=== PATIENT | female | born 1975 | race Caucasian/White ===

== ENCOUNTER 2018-04-18 08:06 | Emergency (ER) | payer BC, OTHER ==
[~2018-04-18] VITALS: Ht 172.7 cm; Wt 82.0 kg
[2018-04-18] MEDS ORDERED: SODIUM CHLORIDE 0.9% 1,000ML IVBOLUS ONE (09:00)
[2018-04-18 09:10] LABS: BASOPHILS # (AUTO) 0.03 x10^3/uL (0-0.1); BASOPHILS % (AUTO) 0 % (0-1); EOSINOPHILS # (AUTO) 0.05 x10^3/uL (0-0.4); EOSINOPHILS % (AUTO) 0 % (1-7); LYMPHOCYTES # (AUTO) 1.57 x10^3/uL (1-3.4); LYMPHOCYTES % (AUTO) 13 % (22-44); MD NO; MEAN CORPUSCULAR HEMOGLOBIN 29.1 pg (27.0-34.8); MEAN CORPUSCULAR HGB CONC 33.6 g/dL (32.4-35.8); MEAN CORPUSCULAR VOLUME 86.7 fL (80-100); MEAN PLATELET VOLUME 7.5 fL (7.4-10.4); MONOCYTES # (AUTO) 0.69 x10^3/uL (0.2-0.8); MONOCYTES % (AUTO) 6 % (2-9); NEUTROPHILS # (AUTO) 10.19 x10^3/uL (1.8-6.8); NEUTROPHILS % (AUTO) 81 % (42-75); PLATELET COUNT 359 x10^3/uL (130-400); RED BLOOD COUNT 4.74 x10^6/uL (3.82-5.3); RED CELL DISTRIBUTION WIDTH 12.2 % (9.6-15.2)
[2018-04-18 09:17] LABS: MICROSCOPIC AUTO
[2018-04-18 09:19] LABS: CULTURE INDICATED? YES
[2018-04-18 09:21] LABS: ALBUMIN 3.4 g/dL (3.4-5.0); ANION GAP 5 mmol/L (5-15); CALCIUM 8.9 mg/dL (8.5-10.1); CHLORIDE 105 mmol/L (98-107)
[2018-04-18 09:25] LABS: CREATININE 0.69 mg/dL (0.55-1.02)
[2018-04-18 09:26] LABS: ALANINE AMINOTRANSFERASE 40 U/L (12-78); ALKALINE PHOSPHATASE 87 U/L (45-117); BILIRUBIN,TOTAL 0.3 mg/dL (0.2-1.0); TOTAL PROTEIN 7.8 g/dL (6.4-8.2)
[2018-04-18] MEDS ORDERED: MAALOX/HYOSCYAMINE/LIDOCAINE 45 ML BTL PO ONE (09:30)
[2018-04-18] MEDS ORDERED: MAALOX/HYOSCYAMINE/LIDOCAINE 45 ML BTL ONE (09:31)
[2018-04-18] MEDS ORDERED: MORPHINE SULFATE 4 MG/ML, 1ML IVPush PRN (10:00)
[2018-04-18] MEDS ORDERED: ONDANSETRON 2MG/ML, 2ML IVPush ONE (10:00)
[2018-04-18] MEDS ORDERED: MORPHINE SULFATE 4 MG/ML, 1ML ONE (10:04)
[2018-04-18] MEDS ORDERED: ONDANSETRON 2MG/ML, 2ML ONE (10:04)
[2018-04-18 10:25] VITALS: BP 146/68
== END 2018-04-18 13:02 | disposition home or self-care (01) ==
LOC: ED 10:20
DX: N30.00 Acute cystitis without hematuria (principal); K59.00 Constipation, unspecified; F17.210 Nicotine dependence, cigarettes, uncomplicated
CPT/HCPCS: 36415; 74021; 80053; 81001; 83690; 85025; 87077; 87086; 87186; 96374; 96375; 99285; J2405; J7030

== ENCOUNTER 2020-05-22 09:33 | Emergency (ER) | payer OTHER ==
[~2020-05-22] VITALS: Ht 175.3 cm; Wt 82.0 kg
[2020-05-22] MEDS ORDERED: HYDROmorphone 2 MG/ML, 1ML IVPush PRN (10:30)
[2020-05-22] MEDS ORDERED: SODIUM CHLORIDE FLUSH 10ML SYR IVF ONE (10:30)
[2020-05-22] MEDS ORDERED: ONDANSETRON 2MG/ML, 2ML IVPush ONE (10:30)
[2020-05-22] MEDS ORDERED: ONDANSETRON 2MG/ML, 2ML ONE (10:35)
[2020-05-22] MEDS ORDERED: HYDROmorphone 1 MG/ML, 1ML INJ ONE (10:35)
--- NOTE | 2020-05-22 11:00 | NUR ---
PT TO ED W C/O RUQ PAIN WORSE ON PALP, STARTED LAST NIGHT, 3/10 "SQUEEZING", NOT AFFECTED BY FOOD, LAST ORAL INTAKE LAST NIGHT AT 1830, 2 BMS THIS AM, NO BLOOD NOTED, NO DIFF URINATING. HX CROHNS STS FEELS DIFF THAN NORMAL CROHNS FLARE UP. PIV EST/MEDS PER AUG/LABS AND UA WALKED TO LAB, XR AND US AT BEDSIDE. CALL [facility].
[2020-05-22 11:06] LABS: BASOPHILS % (AUTO) 1 % (0-1); EOSINOPHILS % (AUTO) 1 % (1-7); LYMPHOCYTES % (AUTO) 13 % (22-44); MEAN CORPUSCULAR HEMOGLOBIN 28.1 pg (27.0-34.8); MEAN CORPUSCULAR HGB CONC 32.7 g/dL (32.4-35.8); MEAN PLATELET VOLUME 7.8 fL (7.4-10.4); MONOCYTES % (AUTO) 7 % (2-9); NEUTROPHILS % (AUTO) 78 % (42-75); PLATELET COUNT 375 x10^3/uL (130-400); RED BLOOD COUNT 5.13 x10^6/uL (3.82-5.3); RED CELL DISTRIBUTION WIDTH 14.3 % (9.6-15.2)
[2020-05-22 11:08] LABS: MICROSCOPIC INDICATED
--- NOTE | 2020-05-22 11:12 | NUR ---
PLAED ON 2LNC FOR DESAT AFTER DILAUDID W IMPROVEMENT.
[2020-05-22 11:18] LABS: ALANINE AMINOTRANSFERASE 21 U/L (12-78); ALBUMIN 4.2 g/dL (3.4-5.0); ANION GAP 9 mmol/L (5-15); CALCIUM 9.3 mg/dL (8.5-10.1); CHLORIDE 108 mmol/L (98-107); CREATININE 0.82 mg/dL (0.55-1.02)
[2020-05-22 11:22] LABS: ALKALINE PHOSPHATASE 104 U/L (45-117); BILIRUBIN,TOTAL 0.4 mg/dL (0.2-1.0); TOTAL PROTEIN 8.2 g/dL (6.4-8.2)
[2020-05-22 11:24] LABS: MD SCAN
--- NOTE | 2020-05-22 11:35 | NUR ---
US DONE, REG IN ROOM. PT CALM IN ROOM. NO REQUESTS AT THIS TIME.
--- NOTE | 2020-05-22 12:25 | NUR ---
STRAIGHT CATHED FOR UA, STS PAIN IS MUCH IMPROVED AFTER DILAUDID. UA WALKED TO LAB.
[2020-05-22 12:33] LABS: MICROSCOPIC NOT IND
--- NOTE | 2020-05-22 12:56 | NUR ---
STRAIGHT CATH UA CLEAR.
[2020-05-22 13:26] VITALS: BP 115/64
== END 2020-05-22 13:29 | disposition home or self-care (01) ==
LOC: ED 11:35
DX: K50.90 Crohn's disease, unspecified, without complications (principal); R10.13 Epigastric pain; R10.9 Unspecified abdominal pain; R11.0 Nausea
CPT/HCPCS: 36415; 74018; 76700; 80053; 81001; 81003; 83690; 84703; 85025; 87086; 96374; 96375; 99285; J1170; J2405